=== PATIENT | female | born 1975 | race African-American/Black ===

== ENCOUNTER 2021-06-28 09:40 | Emergency (ER) | payer MEDICAID ==
[~2021-06-28] VITALS: Ht 170.2 cm; Wt 87.0 kg
[2021-06-28 09:48] VITALS: BP 121/62
[2021-06-28 11:19] LABS: BASOPHILS % 0.4 % (0.0-2.0); EOSINOPHILS % 1.1 % (0.0-5.0); HEMOGLOBIN. 12.9 g/dL (12.0-16.0); LYMPHOCYTES % 26.3 % (20.0-50.0); MEAN CORPUSCULAR HEMOGLOBIN 31.2 pg (28.0-32.0); MEAN CORPUSCULAR VOLUME 93.9 fL (81.0-99.0); MEAN PLATELET VOLUME 8.9 fl (7.4-10.4); MONOCYTES % 6.2 % (2.0-8.0); PLATELET 220 x1000/uL (130-400); RED BLOOD CELL COUNT 4.15 mill/uL (4.2-5.4); RED CELL DISTRIBUTION WIDTH 13.5 % (11.6-14.6)
[2021-06-28 11:30] LABS: CHLORIDE 111 mEq/L (98-107)
[2021-06-28 11:37] LABS: HCG SCREEN NEGATIVE
[2021-06-28] MEDS ORDERED: ONDA4TAB5 PO (13:30)
[2021-06-28] MEDS ORDERED: TOPUD PO (13:30)
== END 2021-06-28 13:51 | disposition home or self-care (01) ==
LOC: ER 10:14
DX: R10.12 Left upper quadrant pain (principal); Z88.0 Allergy status to penicillin
CPT/HCPCS: 36415; 74176; 80053; 84703; 85025; 99284